=== PATIENT | male | born 1995 | race Hispanic/Latino ===

== ENCOUNTER 2019-01-04 17:07 | Outpatient (CLI) | payer OTHER | END 2019-01-04 17:08 | disposition home or self-care (01) | LOC: LAB 17:07 | PROVIDERS: ATTEND Family Medicine | DX: Z20.2 Contact with and (suspected) exposure to infections with a predominantly sexual mode of transmission (principal) | CPT/HCPCS: 36415; 86704; 86706; 87340; 87389 ==